=== PATIENT | male | born 1990 | race Caucasian/White ===

== ENCOUNTER 2025-07-30 07:45 | Emergency (ER) | payer OTHER, SELFPAY ==
[2025-07-30 07:47] VITALS: BP 117/86
--- NOTE | 2025-07-30 08:51 | ED.GENMED ---
History of Present Illness
<TODD Liao - Last Filed: 07/30/25 16:47>
General
Chief Complaint: Musculo-Skeletal Complaint
Source: patient
Exam Limitations: none
Time Seen by Provider: 07/30/25 08:09
Nursing documentation reviewed up to this point in time: agreed with
History of Present Illness
History of Present Illness:
Patient is a 35-year-old male who was playing basketball prior to arrival and pivoted and felt intense pain and heard a snap in his right posterior ankle. He is unable to bear weight. He denies any other injuries.
Past History
<TODD Liao - Last Filed: 07/30/25 16:47>
Past History
ED Past Medical History: None
ED Past Surgical History: None
Phy Exam
<TODD Liao - Last Filed: 07/30/25 16:47>
General Physical Exam
General Presentation: no apparent distress
General age: appears stated age
General Skin: warm and dry
General Habitus: normal
General Mental: alert
General Hydration: appears well hydrated
Neurological Exam
Neurological Exam: alert and oriented x3
Musculoskeletal Exam
Musculoskeletal Exam: other (rle with strong pulses obvious palpable deformity to posterior heel to Achilles tendon; strong pulses no bony tenderness to ankle)
Skin Exam
Skin Exam: normal color and warm/dry
Psychiatric Exam
Psychiatric Exam: normal mood/affect
Course
<TODD Liao - Last Filed: 07/30/25 16:47>
Orders/Labs/Results
Orders:
Orders
07/30/25 07:50
Ankle, Right 3 view CR [CR Ankle - Right Min 3 Views *] Urgent
Comment:
Reason For Exam: pain
Vital Signs
Initial and Last Documented VS:
Initial Vital Signs
Temp Pulse Resp BP Pulse Ox
98.4 F 95 18 117/86 99
07/30/25 07:47 07/30/25 07:47 07/30/25 07:47 07/30/25 07:47 07/30/25 07:47
Last Documented Vital Signs
Temp Pulse Resp BP Pulse Ox
98.4 F 95 18 117/86 99
07/30/25 07:47 07/30/25 07:47 07/30/25 07:47 07/30/25 07:47 07/30/25 08:54
Sccm Administrator consulted with Physician
Sccm Administrator consulted with physician?: Yes
Name of Physician Consulted: ritika
<Pradeep Engle MD - Last Filed: 07/30/25 08:57>
Orders/Labs/Results
Orders:
Orders
07/30/25 07:50
Ankle, Right 3 view CR [CR Ankle - Right Min 3 Views *] Urgent
Comment:
Reason For Exam: pain
Vital Signs
Initial and Last Documented VS:
Initial Vital Signs
Temp Pulse Resp BP Pulse Ox
98.4 F 95 18 117/86 99
07/30/25 07:47 07/30/25 07:47 07/30/25 07:47 07/30/25 07:47 07/30/25 07:47
Last Documented Vital Signs
Temp Pulse Resp BP Pulse Ox
98.4 F 95 18 117/86 99
07/30/25 07:47 07/30/25 07:47 07/30/25 07:47 07/30/25 07:47 07/30/25 08:54
<TODD Liao - Last Filed: 07/30/25 16:47>
MDM/Problems Addressed
Differential Diagnosis Includes:
Not limited to Achilles tendon injury sprain strain, ankle fracture less likely
MDM/Problems Addressed:
Symptoms are consistent with Achilles tendon injury patient placed in a splint with slight plantarflexion. Case reviewed with orthopedics Dr. Major office will see patient today.
<TODD Liao - Last Filed: 07/30/25 16:47>
*Radiology
Radiology exam reviewed: radiology read reviewed
*Pulse Oximetry
SaO2: 99
Oxygen Mode of Delivery: Room air
Patient hypoxic: no
*Critical Care Note
Total Time (30-74mins, 75-104mins- exclusive of procedures): Not Applicable
ED Attending Note
<TODD Liao - Last Filed: 07/30/25 16:47>
-
Portions of this chart may have been created with voice recognition software.� Occasional wrong word or��sound alike� substitutions may have occurred due to the inherent limitations of voice recognition software.
<Pradeep Engle MD - Last Filed: 07/30/25 08:57>
ED Attending Note
Patient seen and examined by attending physician: Yes
I performed the substantive portion of visit, reviewed & personally made and approve the management plan that is documented in note by myself or LINDA.: Yes
ED Attending Note:
Pop in the posterior calf while playing basketball. No medical issues. No other injury.
On exam no significant swelling to the ankle. Ankle is nontender. Foot is nontender. Good distal pulses and color. Clearly has an Achilles defect.
All consistent with an Achilles tear. Will splint and referred to orthopedics for close follow-up
Discharge Plan
Departure
Patient Disposition: Home (Routine Discharge)
Date of Disposition: 07/30/25
Time of Disposition: 09:40
Patient with high blood pressure during this ER visit?: No
Condition: Fair
Covid-19: Not Applicable
Discharge Problem:
Achilles tendon rupture
Instructions: Achilles Tendon Rupture (DC), Splint Care
Prescriptions:
No Action
cetirizine [Zyrtec] 10 MG capsule
1 tab PO DAILY
Referrals:
Shay De Luna MD [Family Provider, Internal Medicine]
Jaspreet Major DPM [Active, Podiatry]
Activity Restrictions/Additional Instructions:
Wear splint for support do not wet splint do not walk on splint use crutches for ambulation keep elevated. Go directly to orthopedics as scheduled today. Return if any worsening of symptoms
Interventions
Interventions:
*Risk Screen - Suicide Last Done: 07/30/25 07:47
*General Assessment Last Done: 07/30/25 09:40
*Neglect/Abuse Screening Last Done: 07/30/25 07:50
*ED- Fall Risk Assessment Last Done: 07/30/25 09:40
*ED COVID-19 Vaccine History Last Done: 07/30/25 09:40
*ED Influenza Vaccine History Last Done: 07/30/25 09:40
*Nursing Disposition Last Done: 07/30/25 09:40
ED-Musculoskeletal Assessment Last Done: 07/30/25 08:17
Discharge Date and Time
Discharge Date/Time: 07/30/25 09:40
Print Language: [place]
== END 2025-07-30 09:40 | disposition home or self-care (01) ==
LOC: EMR 07:45
PROVIDERS: EMERGENCY PHYSICIAN Emergency Medicine; FAMILY PHYSICIAN Internal Medicine
DX: S86.011A Strain of right Achilles tendon, initial encounter (principal); X58.XXXA Exposure to other specified factors, initial encounter; Y93.67 Activity, basketball
CPT/HCPCS: 29515; 99283; 73610; 73721

== ENCOUNTER 2025-08-05 05:45 | Day surgery (SDC) | payer OTHER, SELFPAY ==
[2025-08-05] VITALS (9 sets, daily range): BP systolic 107–129; BP diastolic 54–77; BMI 31.4
[2025-08-05] MEDS: CELEBREX 200 MG PO (06:15)
[2025-08-05] MEDS: NORMOSOL-R/PLASMALYTE-A 1000 IV (06:25)
[2025-08-05] MEDS: DILAUDID 0.25 MG IV (09:35)
--- NOTE | 2025-08-06 06:36 | OR.RPT ---
Operative Report
Operative Report
Operative Report
Patient:�Patrick Lantigua
MRN:�[id number]
Date of Surgery:�08/05/2025
Surgeon:�Fransico Monsivais DPM
Washer And Crusher Tender:�Fransico Arango DPM
Preoperative Diagnosis:�Right Achilles tendon rupture
Postoperative Diagnosis:�Same
Procedure Performed:�Primary repair of Achilles tendon CPT 38913
Anesthesia:�General
Hemostasis:�Thigh tourniquet which remained inflated at 300mmHg for the entirety of the procedure
Estimated Blood Loss:�Minimal
Implants: Arthrex #2 FiberWire and 2x Arthrex Speedbridge Anchors
Complications:�None
Indications:
The patient is a 35-year-old male with an acute rupture of the Achilles tendon sustained approximately 1 week prior while playing basketball. Examination demonstrated a palpable gap, positive Pichardo test, and inability to plantarflex. Imaging
confirmed a rupture in the watershed area. Due to the patient�s functional requirements, operative repair was indicated. The risks, benefits, and alternatives were discussed in detail, and informed consent was obtained.
Procedure in Detail:
The patient was placed prone on the operative table, with all bony prominences well-padded. After induction of general anesthesia, the right lower extremity was prepped and draped in standard sterile fashion. A thigh tourniquet was applied but not
inflated initially.
A transverse incision approximately 4�5 cm in length was made over the Achilles tendon rupture site. Careful blunt dissection was carried through the subcutaneous tissues, protecting the sural nerve. The paratenon was incised and flaps were elevated
to expose the tendon rupture.
A complete rupture in the watershed zone was identified with an approximate 1 cm gap. The tendon edges were lightly debrided back to healthy tissue. The Arthrex PARS jig was then placed through the incision, and the proximal tendon stump was
captured with multiple #2 FiberWire sutures passed percutaneously through the jig according to the PARS technique. This created a secure locked suture construct within the proximal tendon.
Attention was then turned distally. Two small stab incisions were made at the posterior calcaneal tuberosity. The SpeedBridge anchors were prepared and drilled into the calcaneus at the anatomical insertion of the Achilles tendon. Sutures from the
proximal tendon were then tensioned distally and secured into the anchors, restoring tendon continuity and apposition to the calcaneus. The final construct provided a strong, anatomic repair with excellent tension and no gapping noted through ankle
range of motion testing.
The paratenon was reapproximated with 2-0 vicryl suture. The subcutaneous tissues were closed with interrupted 3-0 Vicryl, and the skin was closed with 3-0 prolene sutures. A sterile dressing was applied, and the extremity was immobilized in a
well-padded posterior splint in approximately 20 degrees of plantarflexion.
The patient tolerated the procedure well and was transported to recovery in stable condition. He will be strictly non-weightbearing and will follow up in the office in 2 weeks for an incision check
== END 2025-08-05 11:30 | disposition home or self-care (01) ==
LOC: SDS 05:45
PROVIDERS: ATTENDING PHYSICIAN Student in an Organized Health Care Education/Training Program
DX: S86.011A Strain of right Achilles tendon, initial encounter (principal); X50.0XXA Overexertion from strenuous movement or load, initial encounter; Y93.67 Activity, basketball
CPT/HCPCS: 27650; C1776